=== PATIENT | male | born 1960 ===

== ENCOUNTER 2017-06-30 03:59 | Inpatient (IN) | payer BC ==
[2017-03-23 09:39] VITALS: Ht 175.3 cm; Wt 119.7 kg
[2017-06-29 14:59] LABS: INR 1.05
--- NOTE | 2017-06-29 17:18 | HISTORY AND PHYSICAL ---
DATE OF ADMISSION: June 30, 2017 IDENTIFICATION/CHIEF COMPLAINT Kahlil is a 57-year-old gentleman with the chief complaint of right hip pain. HISTORY OF PRESENT ILLNESS Patient has longstanding hip arthritis which has become intractably painful and debilitating and refractory to conservative care. PAST MEDICAL HISTORY * History of benign brain tumor. * Hypertension, controlled on medication. * Sinus problems. * Benign prostatic enlargement. PAST SURGICAL HISTORY * Right shoulder operation. 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 * Sinus surgery. * Biceps tendon repair. * Removal of mass from his hand. * Contralateral knee replacement. SOCIAL HISTORY Notable for using chewing tobacco until year 1999. He has quit since. He drinks alcohol, about 10 beers per week, denies abuse. FAMILY HISTORY Father with an aneurysm. Mother with cancer. REVIEW OF SYSTEMS Notable for possible psoriatic arthritis. PHYSICAL EXAMINATION GENERAL: This is a well-developed, well-nourished male who appears stated age. Normocephalic, atraumatic. NECK: Supple. LUNGS: Clear. HEART: Regular. ABDOMEN: Soft. ORTHOPEDIC: Exam of the right hip is very painful at limits of flexion and rotation. He has a loss of internal rotation compared to the contralateral of about 20 degrees. Skin envelope is intact. Gross strength is normal. Neurovascular function is intact distally. IMAGING Radiographs demonstrate end stage hip arthritis. ASSESSMENT Right hip end stage degenerative joint disease, progressively painful and debilitating, refractory to conservative care. PLAN Per patient request, we are going to proceed with total hip arthroplasty. The nature of this procedure, risks, benefits, the anticipated rehab course were reviewed. The risks include, but are not limited to , major medical or anesthetic complications, infection, neurovascular injury, blood transfusion, stiffness, scarring, fracture, tendon rupture, instability, leg length discrepancy, implant loosening, migration or failure, persistent or recurrent pain, need for additional surgery and other unforeseen. He understands and wishes to proceed. A signed permit was placed in the chart. No guarantees given or implied. [facility]ALS[facility]
[2017-06-30] VITALS (12 sets, daily range): BP systolic 99–143; BP diastolic 70–90
[~2017-06-30] VITALS: Ht 175.3 cm; Wt 119.7 kg
[~2017-06-30 03:59] MED LIST: ALFU10TA28 PO; ASPI-757 PO; ASPI81TA94 PO; ATR80PT PO; CELE-1 PO; DIA5 PO; FURO40TA35 PO; HYDR-4308 PO; LOSA100T67 PO; NAPR-1043 PO; NAPR220C12 PO; NEBI20TA4 PO; OLME1TAB60 PO; POTA-53 PO; USTE45DI2 SQ
[2017-06-30] MEDS ORDERED: NORMOSOL R SOLN(*) 1000 ML BAG 1,000 ML IV PRN ×2 (06:15→09:35)
[2017-06-30] MEDS ORDERED: ceFAZolin(*) 2GM/D5W 50ML 50 ML IVPB ONE (06:15)
[2017-06-30] MEDS ORDERED: FAMOTIDINE 20 MG TAB PO ONE (06:15)
[2017-06-30] MEDS ORDERED: MIDAZOLAM 2 MG/2 ML VIAL IVP PRN (06:15)
[2017-06-30] MEDS ORDERED: LIDOCAINE/SOD BICARB 8.4% SYR ID ONE (06:15)
[2017-06-30] MEDS ORDERED: cloNIDine EPIDUR INJ 100MCG/ML 40 MCG, ROPIVACAINE 0.5% 20 ML VIAL 25 ML, EPINEPHrine H... INJ ONE (06:15)
[2017-06-30] MEDS ORDERED: TRANEXAMIC AC 1000 MG/10ML SDV 1,000 MG in DEXTROSE 5% 50 ML BAG 50 ML IV ONE (06:15)
[2017-06-30] MEDS ORDERED: LIDOCAINE MPF 1% 5 ML VIAL ONE (06:23)
[2017-06-30] MEDS ORDERED: PROPOFOL EMUL(*) 10MG/ML 20 ML 40 ML ONE (06:23)
[2017-06-30] MEDS ORDERED: METOCLOPRAMIDE 10 MG/2 ML SDV ONE (06:23)
[2017-06-30] MEDS ORDERED: ONDANSETRON 4 MG/2 ML VIAL ONE (06:24)
[2017-06-30] MEDS ORDERED: DEXAMETHASONE SOD 4 MG/ML VIAL ONE (06:24)
[2017-06-30] MEDS ORDERED: fentaNYL CITR 100 MCG/2 ML AMP ONE (06:27)
[2017-06-30] MEDS ORDERED: NS(*) 0.9% 250 ML BAG 250 ML ONE (07:08)
[2017-06-30] MEDS ORDERED: ACETAMINOPHEN(*)1000 MG/100 ML 100 ML IVPB ONE (07:08)
[2017-06-30] MEDS ORDERED: ePHEDrine 25 MG/5 ML DISP.SYR IVP ONE (07:18)
[2017-06-30] MEDS ORDERED: PHENYLEPHRINE 10 MG/1 ML VIAL ONE (07:44)
[2017-06-30] MEDS ORDERED: BENZOCAINE/MENTHOL 1 EACH LOZG PO PRN (09:35)
[2017-06-30] MEDS ORDERED: ZOLPIDEM TARTRATE 5 MG TAB PO PRN (09:35)
[2017-06-30] MEDS ORDERED: diphenhydrAMINE 25 MG CAP PO PRN (09:35)
[2017-06-30] MEDS ORDERED: PROMETHAZINE 25 MG/ML 1 ML AMP IVP PRN (09:35)
[2017-06-30] MEDS ORDERED: APAP/HYDROCODONE 325/7.5 TAB PO PRN (09:35)
[2017-06-30] MEDS ORDERED: diphenhydrAMINE 50 MG/ML VIAL IVP PRN (09:35)
[2017-06-30] MEDS ORDERED: MAGNESIUM HYDROXIDE* 30ML UDCP PO PRN (09:35)
[2017-06-30] MEDS ORDERED: FLUSH 10 ML SYR IVP PRN (09:35)
[2017-06-30] MEDS ORDERED: DIAZEPAM 5 MG TAB PO PRN (09:35)
[2017-06-30] MEDS ORDERED: BISACODYL 10 MG SUPP PR PRN (09:35)
[2017-06-30] MEDS ORDERED: ACETAMINOPHEN 325 MG TAB PO PRN (09:35)
--- NOTE | 2017-06-30 10:03 | RADIOLOGY IMAGING REPORT ---
FACILITY: [facility] - [place] PATIENT NAME: Kahlil Camacho : 1960 MR: [id number] V: [id number] EXAM DATE: ORDERING PHYSICIAN: ELI REIS TECHNOLOGIST: Location: [facility] Patient: Kahlil Camacho : 1960 Visit/Account:[id number] Date of Sevice: 06/30/2017 PELVIS Indication: Postoperative right total hip arthroplasty Comparison: None. Findings: Postoperative changes from right total hip arthroplasty are seen. The acetabular and femor al components appear in good position. Impression: Postoperative changes right total hip arthroplasty. Report Dictated By: Mundo Holden at 06/30/2017 9:58 AM Report E-Signed By: Mundo Holden at 06/30/2017 9:59 AM WSN:[id number]
[2017-06-30] MEDS: ceFAZolin(*) 1 GM VIAL 1 GM in NS(*) 0.9% 100 ML ADDVANT BAG 100 ML IVPB SCH ×2 (15:20→23:24)
--- NOTE | 2017-06-30 15:42 | OPERATIVE REPORT 1 ---
EVENT DATE: June 30, 2017 SURGEON: Chaparro Martin MD ANESTHESIOLOGIST: Tayo Allen MD ANESTHESIA: General plus spinal. STORM CHASER: DAWOOD Barron PREOPERATIVE DIAGNOSIS Right hip degenerative joint disease. POSTOPERATIVE DIAGNOSIS Right hip degenerative joint disease. PROCEDURE PERFORMED Right total hip arthroplasty. ESTIMATED BLOOD LOSS 200 mL DRAINS None. SPECIMENS None. COMPLICATIONS None apparent. IMPLANTS USED Vidor system with a Secur-Fit 132 stem size 9, a 36 mm Biolox head, standard neck length, a 52 mm raised rim PSL shell with a zero-degree X3 polyethylene liner. INDICATIONS Kahlil is a 57-year-old gentleman with intractable pain and disability related to end-stage hip arthritis. Surgery is indicated to relieve symptoms after failure of nonoperative measures. DESCRIPTION OF PROCEDURE The patient was taken to the operating room and placed supine on the operating table. A spinal block was administered by the anesthesiologist. General anesthesia was induced. Antibiotics were administered IV. The patient was positioned in the left lateral decubitus on a well-padded pegboard. His pelvis was secured in a vertical position. All bony prominences and superficial nerves were well padded. The right hip, groin, and lower extremity were prepped and draped free in the usual sterile fashion for hip arthroplasty. A small incision in the posterolateral approach was made and carried down through the skin and subcutaneous tissue to the deep fascia. The fascia was incised over the tip of the trochanter, distally in line with the femur, and proximally in line with the cedric fibers. The cedric fibers were split bluntly. A deep Charnley retractor was placed. The trochanteric bursa was excised. The interval between the abductor and the external rotators was identified. The abductor mechanism was protected with a blunt Hohmann. An L capsulotomy/ tenotomy was made with the superior limb just above the piriformis and then a vertical limb taking the capsule and external rotators off the posterior aspect of the femur. These were tagged with #2 Vicryl for later anatomic reattachment. The femoral head was dislocated. End-stage arthritis was noted. A 1.5 cm neck cut was made consistent with preoperative templating. The femoral head was extracted. The femur was translocated anteriorly. Janeth- acetabular retractors were placed with the tips down on bone to avoid injury to critical neurovascular structures. The labrum and pulvinar were excised. A 44 mm reamer was used to medialize to the true medial wall of the acetabulum. This was expanded in 2 mm increments up to 52. A trial 52 had nice line-to- line fit and good rim contact. The 53 was then used to open the throat of the acetabulum. The wound was copiously lavaged. The actual shell was impacted in approximately 45 degrees of lateral opening and 15 degrees of anteversion using the transverse acetabular ligament, internal bony landmarks, and extracorporeal guide to guide socket placement. Rock-solid fixation was achieved. No adjuvant fixation was felt to be needed. The shell was lavaged and dried, and the actual liner was locked into the shell. Attention was turned to femoral preparation. Superior neck was resected with the [employer] Library cutter. The Diana awl found the canal. Tapered reaming was performed up to 9 where solid end- ostial contact was obtained. Broaching started with 7 and worked up to 9, taking care to lateralize and ensure appropriate version following the [place] anteversion and the calcar at about 15 degrees. The 9 broach had solid fit, fill, and stability. A trial reduction was performed off this, and tenriism of the limb length and stability were achieved. The broach was extracted. The actual stem was impacted and seated roughly at the same height. Various neck lengths were tried, and the standard was felt to be optimal. The Parada taper was lavaged and dried, and the actual Biolox head was impacted onto the Parada taper. The joint was reduced. Next, the external rotators and capsule were anatomically reapproximated with drill holes through the posterolateral femur. The wound was copiously lavaged. A pain cocktail was infiltrated throughout. The deep fascia was closed with #2 Ethibond distally and #2 Vicryl proximally. The subcutaneous tissue was lavaged. Hemostasis was assured. The dermis was closed with 3-0 Vicryl and the skin with surgical melecio. Xeroform and 4 x 4' s applied in a dry, sterile dressing and a hip wrap. The patient was rolled supine. An abduction pillow was placed. He was awakened from anesthesia and taken to the recovery room in stable condition having tolerated the procedure well. PLAN The plan is for standard MELISSA rehab protocol, weightbearing as tolerated, and posterior hip precautions. [facility]
[2017-06-30] MEDS: CELECOXIB 200 MG CAP PO SCH (16:16)
[2017-07-01 04:08] VITALS: BP 135/75
[2017-07-01] MEDS ORDERED: ASPIRIN 325 MG TAB PO SCH (09:00)
[2017-07-01] MEDS: CELECOXIB 200 MG CAP PO SCH (09:06)
[2017-07-01] MEDS: ceFAZolin(*) 1 GM VIAL 1 GM in NS(*) 0.9% 100 ML ADDVANT BAG 100 ML IVPB SCH (09:06)
[2017-07-01] MEDS ORDERED: ALFUZOSIN HCL 10 MG TABCR PO SCH (09:20)
[2017-07-01] MEDS ORDERED: LOSARTAN POTASSIUM 50 MG TAB PO SCH (09:20)
[2017-07-01] MEDS ORDERED: NAPROXEN 375 MG TAB PO PRN (09:20)
[2017-07-01] MEDS ORDERED: NEBIVOLOL HCL 5 MG TAB PO SCH (09:20)
--- NOTE | 2017-07-01 10:46 | Hospitalist Consultation ---
History of Present Illness Requesting Physician Eli Reis MD Reason for Consult Post-op medical management Chief Complaint Hip pain History of Present Illness Mr. Camacho is a 57-year-old gentleman with PMH of BPH, HTN, Dyslipidemia, Brain AVM s/p surgery, Chronic Sinusitis and Arthritis with chief complaint of right hip pain. Patient has longstanding hip arthritis which has become intractably painful and debilitating and refractory to conservative care. He also has had R-Shoulder, Bicep tendon, Knee surgeries. He was admitted by Dr. Reis for elective Hip surgery and he did well without any complications. I was asked to evaluate for his medical problems. I have reviewed his record and current medications. He is afebrile and hemodynamically stable without complaint. History Home Meds Reported Medications Naproxen Sodium (ALEVE) 220 Mg Capsule, 220 MG PO TID Y for PAIN, CAPSULE 06/22/17 Losartan Potassium (LOSARTAN POTASSIUM) 100 Mg Tablet, 100 MG PO QDAY 06/22/17 Aspirin (ASPIRIN) 81 Mg Tab.chew, 81 MG PO QDAY, TAB.CHEW 06/22/17 Ustekinumab (STELARA) 45 Mg/0.5 Ml Disp.syrin, 45 MG SQ DIRECTED EVERY 3 MONTHS FOR PSORIASIS 03/14/17 Potassium Chloride (POTASSIUM CHLORIDE) 10 Meq Tab.er.prt, 10 MEQ PO QDAY 03/14/17 Atorvastatin (LIPITOR) 80 Mg Tab, 1 TAB PO QDAY, TAB 03/14/17 Alfuzosin Hcl (UROXATRAL) 10 Mg Tabcr, 10 MG PO DAILY 03/14/17 Furosemide (LASIX) 40 Mg Tablet, 1 TAB PO QDAY, TAB 03/14/17 Nebivolol Hcl (BYSTOLIC) 20 Mg Tablet, 20 MG PO DAILY 03/14/17 Allergies: Coded Allergies: No Known Drug Allergies (Unverified , 03/14/17) Patient History: FH: arterial aneurysm FATHER, FH: cancer MOTHER, Hx Smoking: No Caffeine Intake: Tea Caffeine/Cups Per Day: CUP DAILY Hx Alcohol Use: Yes Hx Substance Use Disorder: No Social Drug Use: Never History of IV Drug Use: No Review of Systems Constitutional: No Fever, No Weight Loss, No Weight Gain, No Chills Neurological: No Confusion, No Weakness, No Dizziness Cardiovascular: No Chest Pain, No Palpitations Respiratory: No Shortness of Breath, No Cough Gastrointestinal: No Nausea, No Vomiting, No Diarrhea, No Constipation, No Abdominal Pain Genitourinary: No Dysuria, No Hematuria Musculoskeletal: Pain, Impaired Mobility, No Sprain, No Strain Psychiatric: No Depression, No Anxiety Exam Vital Signs Vital Signs Date Time Temp Pulse Resp B/P (MAP) Pulse Ox O2 Delivery O2 Flow Rate FiO2 07/01/17 04:08 98.4 18 135/75 (95) 93 Nasal Cannula 1.0 06/30/17 23:25 92 General Appearance: Alert, Awake, No Acute Distress, Afebrile Neuro: No Gross deficits Eyes: PERRLA ENT: Normal Cardiovascular: Normal Rhythm & Peripheral Pulses, No Edema Respiratory: No Respiratory Distress GI: Abd Soft and Non-Tender Extremities: Soft and Non Tender Integumentary: Skin Intact without Lesion / Mass Psych: Alert & Oriented X3 Medical Decision Making Pre-Admit Course Medical Record Review: Yes Assessment and Plan Problems: (1) Status post hip surgery Status: Acute Assessment & Plan: Hip management as per surgery, he is on Aspirin 325mg po qd for DVT prophylaxis (2) BPH (benign prostatic hyperplasia) Status: Chronic Assessment & Plan: He is stble and I will continue his BPH medication (3) HTN (hypertension) Status: Chronic Assessment & Plan: I will continue his BP meds (4) Hyperlipemia Status: Chronic Assessment & Plan: I will start his Lipitor Time Spent on Plan of Care: < 30 min Copies to: ELI REIS MD Venous Thromboembolism VTE Risk Physician Assess for VTE Risk: Yes Patient's VTE Risk: Low VTE Diagnostic Test 2 Days Prior to Admit: No Antithrombotics Is Pt On Any Antithrombotics?: No Exam Sepsis Risk: No Definite Risk LLOYD CANADA MD Jul 01, 2017 10:46
[2017-07-01] MEDS ORDERED: CELE-1 PO (11:14)
[2017-07-01] MEDS ORDERED: HYDR-4308 PO (11:15)
[2017-07-01] MEDS ORDERED: ASPI-764 PO (11:20)
[2017-07-01] MEDS ORDERED: ATORVASTATIN 40 MG TAB PO SCH (21:00)
[2017-07-02] MEDS ORDERED: FUROSEMIDE 40 MG TAB PO SCH (09:00)
[2017-07-02] MEDS ORDERED: POTASSIUM CHL 10 MEQ TABCR PO SCH (09:00)
== END 2017-07-01 11:50 | disposition home or self-care (01) | DRG 470 ==
LOC: OR 03:59 → OBSVTOIN 10:25 → MED 10:25
PROVIDERS: ADMIT Orthopaedic Surgery; ATTEND Orthopaedic Surgery
PROC: 0SR904Z Replacement of Right Hip Joint with Ceramic on Polyethylene Synthetic Substitute, Open Approach (ICD-10-PCS; principal; 2017-06-30 07:09)
DX: M16.11 Unilateral primary osteoarthritis, right hip (principal); I10 Essential (primary) hypertension; N40.1 Benign prostatic hyperplasia with lower urinary tract symptoms; R33.8 Other retention of urine; L40.9 Psoriasis, unspecified; E66.9 Obesity, unspecified; L40.50 Arthropathic psoriasis, unspecified; E78.5 Hyperlipidemia, unspecified; J32.9 Chronic sinusitis, unspecified; Z87.891 Personal history of nicotine dependence; Z68.39 Body mass index [BMI] 39.0-39.9, adult; Z96.652 Presence of left artificial knee joint
CPT/HCPCS: 36415; 72170; 85610; 86850; 86900; 86901; 97161; C1776; J0131; J0171; J0690; J0735; J1100; J1885; J2001; J2250; J2370; J2405; J2704; J2765; J2795; J3010; J7050; J7060; Q0163